=== PATIENT | female | born 2000 | race Caucasian/White ===

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

== ENCOUNTER 2022-01-24 17:03 | Emergency (ER) | payer BC, OTHER ==
[2022-01-24 17:12] VITALS: RESP 18
[2022-01-24 18:34] LABS: Appearance,Urine Clear (Clear); Bilirubin,Urine Negative (Negative); Blood,Urine Negative (Negative); Color,Urine Yellow; Glucose,Urine (UA) Negative (Negative); HCT 37.3 % (34.0-46.0); HGB 12.3 gm/dL (11.4-16.0); Ketones,Urine Negative (Negative); Leukocyte Esterase,Urine Negative (Negative); MCH 26.2 pg (25.0-35.0); MCHC 33.1 g/dL (31.0-37.0); MCV 79.2 fL (80.0-100.0); Mean Platelet Volume 9.5; Nitrite,Urine Negative (Negative); Protein,Urine Negative (Negative); Specific Gravity,Urine 1.009 (1.001-1.035); WBC 5.6 k/uL (4.0-11.0)
[2022-01-24 18:44] LABS: ALT 63 U/L (4-34); AST 66 U/L (14-36); African American GFR (CKD) >90 (>60 ml/min/1.73 sqM); Albumin 4.1 g/dL (3.5-5.0); Alkaline Phosphatase 144 U/L (38-126); Anion Gap 8 mmol/L; Blood Urea Nitrogen 3 mg/dL (7-17); Calcium 8.8 mg/dL (8.4-10.2); Carbon Dioxide 24 mmol/L (22-30); Chloride 101 mmol/L (98-107); Glucose 113 mg/dL (74-99); Non-African American GFR(CKD) >90 (>60 ml/min/1.73 sqM); Sodium 133 mmol/L (137-145); Total Bilirubin 1.5 mg/dL (0.2-1.3); Total Protein 7.4 g/dL (6.3-8.2)
[2022-01-24] MEDS ORDERED: ONDANSETRON 4 MG/2 ML VIAL IVP STA (19:25)
[2022-01-24] MEDS ORDERED: SODIUM CHLORIDE 0.9% 2,000 ML IV STA (19:27)
[2022-01-24 19:42] LABS: Lymphocytes # (M) 3.19 k/uL (1.0-4.8); Monocytes # (M) 0.45 k/uL (0-1.0); Neutrophils # (M) 1.96 k/uL (1.3-7.7); Neutrophils % (M) 35 %; Nucleated Red Blood Cells 0 /100 WBC (0-0); Total Cells Counted 100
--- NOTE | 2022-01-24 20:13 | CT ---
EXAMINATION TYPE: CT abdomen pelvis w con DATE OF EXAM: 01/24/2022 COMPARISON: None HISTORY: RLQ pian and vomting CT DLP: 794.6 mGycm Automated exposure control for dose reduction was used. CONTRAST: Performed with IV Contrast, patient injected with 100 mL of Isovue 300. Lung bases are clear. There is no pleural effusion. Heart size is normal. There is no pericardial eff usion. There is an enlarged spleen measuring 15 cm. Liver shows no focal defect. The bile ducts are not dila valeriano. Stomach is intact. There is no pancreatic mass. Gallbladder appears normal. There is no adrenal mass. Kidneys show satisfactory contrast opacification. There is no hydronephrosi s. Ureters are not dilated. There is no retroperitoneal adenopathy. Bladder distends smoothly. There is no free fluid in the pelvis. There is no inguinal hernia. There is no evidence of a pelvic mass. Uterus is anteverted. There is no mesenteric edema. There is no ascites or free air. There is no sign of a bowel obstruction. Terminal ileum appears normal. There is a small normal appendix at the tip o f the cecum. The lumbar vertebrae are in normal alignment. No compression fracture. Disc spaces are fairly normal. The bony pelvis is intact. The hip joints are intact. IMPRESSION: Normal appendix. No evidence of renal stone or obstruction. Negative exam.
[2022-01-24] MEDS ORDERED: ACETAMINOPHEN TAB 500 MG TAB PO STA (20:24)
[2022-01-24 20:37] LABS: Influenza A Not Detected (Not Detectd); Influenza B Not Detected (Not Detectd)
[2022-01-24 21:01] VITALS: BP 109/57; PULSE 96; TEMP 98.7
--- NOTE | 2022-01-24 21:30 | US ---
EXAMINATION TYPE: US abdomen limited DATE OF EXAM: 01/24/2022 COMPARISON: CLINICAL HISTORY: RUQ pain. RUQ pain. Fever on and off. EXAM MEASUREMENTS: Liver Length: 16.8 cm Gallbladder Wall: 0.1 cm CBD: 0.3 cm Right Kidney: 12.0 x 5.2 x 4.7 cm Pancreas: Limited visualization due to bowel gas Liver: wnl Gallbladder: wnl, fold seen Evidence for sonographic Espinosa's sign: neg CBD: wnl Right Kidney: No hydronephrosis or masses seen IMPRESSION: Negative exam. No gallstones or dilated ducts.
[2022-01-24] MEDS ORDERED: ONDANSETRON 4 MG ODT STARTER PACK 2 TAB BTL PO STA (21:41)
--- NOTE | 2022-01-24 21:46 | ED ---
General Adult HPI - General Source: patient Mode of arrival: ambulatory Limitations: no limitations <Afsaneh Vazquez - Last Filed: 01/24/22 22:17> <Fletcher Lacey - Last Filed: 01/25/22 09:33> - General Chief complaint: Recheck/Abnormal Lab/Rx Stated complaint: Abd pain Time Seen by Provider: 01/24/22 19:12 - History of Present Illness Initial comments: Patient is a 21-year-old female who presents to the emergency department with a chief complaint of right-sided abdominal pain. Patient reports the pain started over the weekend, constant, worse in the right lower quadrant of the abdomen. Patient experienced several episodes of nausea and vomiting. She is unable to eat or drink due to nausea and pain. Patient has associated chills and body aches. Patient thought that she had the flu and that the pain would get better however the pain has continued and is unchanged. Patient reports she is vomitin g less but is still nauseous. She reports intermittent episodes of diarrhea, nonbloody. Patient reports she is vaccinated for COVID-19 and influenza. She denies previous abdominal history or surgeries. She has no other concerns at this time including headache, shortness of breath, chest pain, palpitations, flank pain, back pain, and burning with urination. Patient denies chance of . She denies IV drug use, unprotected sexual intercourse, and exposure to blood or bodily fluids. (Afsaneh Vazquez) - Related Data Home Medications Medication Instructions Recorded Confirmed Estarylla Oc 0.25-35 Tab 1 tab PO DAILY 01/24/22 01/24/22 Previous Rx's Medication Instructions Recorded Ondansetron Odt [Zofran Odt] 4 mg PO Q8HR PRN 7 Days #21 tab 01/24/22 Allergies Allergy/AdvReac Type Severity Reaction Status Date / Time No Known Allergies Allergy Verified 01/24/22 19:52 Review of Systems ROS Other: All systems not noted in ROS Statement are negative. <Afsaneh Vazquez - Last Filed: 01/24/22 22:17> ROS Other: All systems not noted in ROS Statement are negative. <Fletcher Lacey - Last Filed: 01/25/22 09:33> ROS Statement: Those systems with pertinent positive or pertinent negative responses have been documented in the HPI. Past Medical History Past Medical History: No Reported History History of Any Multi-Drug Resistant Organisms: None Reported Past Surgical History: Adenoidectomy, Orthopedic Surgery, Tonsillectomy Past Psychological History: No Psychological Hx Reported Smoking Status: Never smoker Past Alcohol Use History: None Reported Past Drug Use History: None Reported <TaylorAfsaneh - Last Filed: 01/24/22 22:17> General Exam Limitations: no limitations General appearance: alert, in no apparent distress Head exam: Present: atraumatic, normocephalic, normal inspection ENT exam: Present: mucous membranes moist Neck exam: Present: normal inspection Respiratory exam: Present: normal lung sounds bilaterally. Absent: respiratory distress, wheezes, rales, rhonchi, stridor Cardiovascular Exam: Present: normal rhythm, tachycardia GI/Abdominal exam: Present: soft, tenderness (Right upper quadrant and right lower quadrant. Negative Espinosa sign), normal bowel sounds. Absent: distended, guarding, rebound, rigid Back exam: Present: normal inspection. Absent: CVA tenderness (R), CVA tenderness (L) Neurological exam: Present: alert, oriented X3, CN II-XII intact Psychiatric exam: Present: normal affect, normal mood Skin exam: Present: warm, dry, intact, normal color. Absent: rash <Afasneh Vazquez - Last Filed: 01/24/22 22:17> Course Vital Signs 01/24/22 03 17:09 20:57 Temperature 101.6 F H 98.7 F Pulse Rate 107 H 96 Respiratory 18 18 Rate Blood Pressure 109/67 109/57 O2 Sat by Pulse 98 99 Oximetry Medical Decision Making - Lab Data Result diagrams: 01/24/22 18:22 01/24/22 18:22 <Afsaneh Vazquez - Last Filed: 01/24/22 22:17> - Lab Data Result diagrams: 01/24/22 18:22 01/24/22 18:22 <Fletcher Lacey - Last Filed: 01/25/22 09:33> - Medical Decision Making Patient is a 21-year-old female who presents with right-sided abdominal pain, nausea, and vomiting x 1 week. Thorough history and examination were performed. She is febrile at 101.6F. She is tachycardic at 107. Patient is tender in the right upper quadrant and right lower quadrant of the abdomen. Negative Espinosa sign. Laboratory studies reveal mildly elevated liver enzymes and bilirubin. Due to patient's consistent pain in the right lower quadrant, intractable nausea and vomiting, as well as fever, CT of the abdomen and pelvis with contrast was obtained to rule out appendicitis which was unremarkable. Ultrasound of the abdomen was obtained for gallbladder pathology which revealed no gallstones or dilated ducts. Patient was given a fluid bolus, Zofran, and Tylenol. On reevaluation patient is afebrile. Pulse is normal at 96. Patient reports pain is tolerable and her nausea improved. Results discussed with patient. At this time patient's symptoms are likely due to viral etiology. Patient will be discharged with Zofran prescription and is instructed to follow-up with her primary care provider if pain, nausea, or vomiting persists. Return parameters discussed. Patient verbalizes understanding and is agreeable to plan. Dr. Lacey is my attending. (Afsaneh Vazquez) - Lab Data Lab Results 01/24/22 01/24/22 01/24/22 Range/Units 18:22 18:22 18: WBC 5.6 (4.0-11.0) k/uL RBC 4.70 (3.80-5.40) m/uL Hgb 12.3 (11.4-16.0) gm/dL Hct 37.3 (34.0-46.0) % MCV 79.2 L (80.0-100.0) fL MCH 26.2 (25.0-35.0) pg MCHC 33.1 (31.0-37.0) g/dL RDW 14.0 (11.5-15.5) % Plt Count COMMUNICATIONS LEAD MPV 9.5 Neutrophils % (Manual) 35 % Lymphocytes % (Manual) 57 % Monocytes % (Manual) 8 % Neutrophils # (Manual) 1.96 (1.3-7.7) k/uL Lymphocytes # (Manual) 3.19 (1.0-4.8) k/uL Monocytes # (Manual) 0.45 (0-1.0) k/uL Nucleated RBCs 0 (0-0) /100 WBC Manual Slide Review Performed Sodium (137-145) mmol/L Potassium (3.5-5.1) mmol/L Chloride (98-107) mmol/L Carbon Dioxide (22-30) mmol/L Anion Gap mmol/L BUN (7-17) mg/dL Creatinine (0.52-1.04) mg/dL Est GFR (CKD-EPI)AfAm (>60 ml/min/1.73 sqM) Est GFR (CKD-EPI)NonAf (>60 ml/min/1.73 sqM) Glucose (74-99) mg/dL Calcium (8.4-10.2) mg/dL Total Bilirubin (0.2-1.3) mg/dL AST (14-36) U/L ALT (4-34) U/L Alkaline Phosphatase (38-126) U/L Total Protein (6.3-8.2) g/dL Albumin (3.5-5.0) g/dL Urine Color Yellow Urine Appearance Clear (Clear) Urine pH 7.0 (5.0-8.0) Ur Specific [place] 1.009 (1.001-1.035) Urine Protein Negative (Negative) Urine Glucose (UA) Negative (Negative) Urine Ketones Negative (Negative) Urine Blood Negative (Negative) Urine Nitrite Negative (Negative) Urine Bilirubin Negative (Negative) Urine Urobilinogen 2.0 (<2.0) mg/dL Ur Leukocyte Esterase Negative (Negative) Urine HCG, Qual Not Detected (Not Detectd) Influenza Type A (PCR) (Not Detectd) Influenza Type B (PCR) (Not Detectd) RSV (PCR) (Not Detectd) SARS-CoV-2 (PCR) (Not Detectd) 01/24/22 01/24/22 Range/Units 18:22 19:55 WBC (4.0-11.0) k/uL RBC (3.80-5.40) m/uL Hgb (11.4-16.0) gm/dL Hct (34.0-46.0) % MCV (80.0-100.0) fL MCH (25.0-35.0) pg MCHC (31.0-37.0) g/dL RDW (11.5-15.5) % Plt Count MPV Neutrophils % (Manual) % Lymphocytes % (Manual) % Monocytes % (Manual) % Neutrophils # (Manual) (1.3-7.7) k/uL Lymphocytes # (Manual) (1.0-4.8) k/uL Monocytes # (Manual) (0-1.0) k/uL Nucleated RBCs (0-0) /100 WBC Manual Slide Review Sodium 133 L (137-145) mmol/L Potassium 4.0 (3.5-5.1) mmol/L Chloride 101 (98-107) mmol/L Carbon Dioxide 24 (22-30) mmol/L Anion Gap 8 mmol/L BUN 3 L (7-17) mg/dL Creatinine 0.59 (0.52-1.04) mg/dL Est GFR (CKD-EPI)AfAm >90 (>60 ml/min/1.73 sqM) Est GFR (CKD-EPI)NonAf >90 (>60 ml/min/1.73 sqM) Glucose 113 H (74-99) mg/dL Calcium 8.8 (8.4-10.2) mg/dL Total Bilirubin 1.5 H (0.2-1.3) mg/dL AST 66 H (14-36) U/L ALT 63 H (4-34) U/L Alkaline Phosphatase 144 H (38-126) U/L Total Protein 7.4 (6.3-8.2) g/dL Albumin 4.1 (3.5-5.0) g/dL Urine Color Urine Appearance (Clear) Urine pH (5.0-8.0) Ur Specific [place] (1.001-1.035) Urine Protein (Negative) Urine Glucose (UA) (Negative) Urine Ketones (Negative) Urine Blood (Negative) Urine Nitrite (Negative) Urine Bilirubin (Negative) Urine Urobilinogen (<2.0) mg/dL Ur Leukocyte Esterase (Negative) Urine HCG, Qual (Not Detectd) Influenza Type A (PCR) Not Detected (Not Detectd) Influenza Type B (PCR) Not Detected (Not Detectd) RSV (PCR) Not Detected (Not Detectd) SARS-CoV-2 (PCR) Not Detected (Not Detectd) Disposition Is patient prescribed a controlled substance at d/c from ED?: No Time of Disposition: 21:46 <Afsaneh Vazquez - Last Filed: 01/24/22 22:17> <Fletcher Lacey - Last Filed: 01/25/22 09:33> Clinical Impression: Abdominal pain, Nausea & vomiting, Fever, Diarrhea Disposition: HOME SELF-CARE Instructions (If sedation given, give patient instructions): Abdominal Pain (ED) Additional Instructions: Please take Zofran as prescribed for nausea. He may take Tylenol or Motrin as needed for fever and pain. Increase fluid intake as tolerated. Your laboratory studies show mildly elevated liver enzymes. These could be elevated due to persistent vomiting. Follow-up with primary care provider for repeat laboratory studies if pain, nausea, or vomiting persists. Return to the emergency department if you experience new, concerning, or worsening symptoms. Prescriptions: Ondansetron Odt [Zofran Odt] 4 mg PO Q8HR PRN 7 Days #21 tab PRN Reason: Nausea Referrals: George Randall MD [Primary Care Provider] - 1-2 days
== END 2022-01-24 22:00 | disposition home or self-care (01) ==
LOC: EC 17:03
DX: R11.2 Nausea with vomiting, unspecified (principal); R19.7 Diarrhea, unspecified; R10.9 Unspecified abdominal pain; Z20.822 Contact with and (suspected) exposure to COVID-19
CPT/HCPCS: 36415; 80053; 85025; 81003; 81025; 87636; 76705; 74177; 99284; 96374; 96361; J2405; S0119; Q9967

== ENCOUNTER → 2023-07-25 | Outpatient (CLI) | payer BC, OTHER ==
[2023-07-25 22:54] LABS: Basophils # (A) 0.06 X 10*3/uL (0.00-0.10); Basophils % (A) 0.9 %; Eosinophils # (A) 0.15 X 10*3/uL (0.04-0.35); Eosinophils % (A) 2.1 %; HCT 39.3 % (37.2-46.3); HGB 12.6 d/dL (12.0-15.0); Lymphocytes # (A) 3.02 X 10*3/uL (0.90-5.00); MCH 27.2 pg (27.0-32.0); MCHC 32.1 d/dL (32.0-37.0); MCV 84.9 FL (80.0-97.0); Monocytes # (A) 0.44 X 10*3/uL (0.20-1.00); Monocytes % (A) 6.3 %; NRBC Per 100 WBC 0 X 10*3/uL (0.00-0.01); Neutrophils # (A) 3.32 X 10*3/uL (1.80-7.70); Neutrophils % (A) 47.1 %; Platelet Count 315 X 10*3/uL (140-440); RBC 4.63 X 10*6/uL (4.10-5.20); RDW 14.3 % (11.5-14.5); WBC 7.03 X 10*3/uL (4.50-10.00)
[2023-07-25 23:38] LABS: ALT 25 U/L (8-44); AST 23 U/L (13-35); Albumin 4.5 d/dL (3.8-4.9); Alkaline Phosphatase 63 U/L (41-126); BUN/Creat Ratio 11.33 Ratio (12.00-20.00); Blood Urea Nitrogen 6.8 mg/dL (9.0-27.0); Calcium 9.9 mg/dL (8.7-10.3); Carbon Dioxide 24.7 mmol/L (21.6-31.8); Chloride 104 mmol/L (96-109); Chol/HDL Ratio 3.79 Ratio; Globulin 2.5 d/dL (1.6-3.3); Glucose 88 mg/dL (70-110); LDL Cholesterol,Calculated 120.1 mg/dL (0.0-131.0); Potassium 4.6 mmol/L (3.5-5.5); Sodium 140 mmol/L (135-145); Total Bilirubin 0.4 mg/dL (0.3-1.2); VLDL Calculation 12.44 mg/dL (5.00-40.00)
== END | disposition home or self-care (01) ==
LOC: LABWHC1 11:20
PROVIDERS: ATTEND Pediatrics
DX: Z00.01 Encounter for general adult medical examination with abnormal findings (principal); R53.82 Chronic fatigue, unspecified
CPT/HCPCS: 36415; 80053; 80061; 82306; 82728; 83036; 84439; 84443; 85025